=== PATIENT | female | born 1980 | race Two or more races ===

== ENCOUNTER 2020-12-31 07:39 | Emergency (ER) | payer BC ==
[~2020-12-31] VITALS: Ht 160 cm; Wt 74.8 kg
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
[2020-12-31 08:15] VITALS: BP 171/96
--- NOTE | 2020-12-31 08:15 | NUR ---
Patient discharged to home in stable condition. Written and verbal after care instructions given. Patient verbalizes understanding of instruction.
== END 2020-12-31 08:24 | disposition home or self-care (01) ==
LOC: ER 07:42
DX: S80.12XA Contusion of left lower leg, initial encounter (principal); S80.11XA Contusion of right lower leg, initial encounter; R51.9 Headache, unspecified; V49.49XA Driver injured in collision with other motor vehicles in traffic accident, initial encounter; Y93.89 Activity, other specified; Y92.413 State road as the place of occurrence of the external cause; Y99.8 Other external cause status